=== PATIENT | female | born 1990 | race Caucasian/White ===

== ENCOUNTER 2019-05-05 16:32 | Outpatient (RCR) | payer MEDICAID, SELFPAY ==
[2019-05-05] MEDS: RHO(D) IMMUNE GLOBULIN 300 MCG SYRINGE IM (19:44)
== END 2019-08-03 23:59 | disposition home or self-care (01) ==
LOC: ANHLAB 16:32
PROVIDERS: PCP Family Medicine; Visit Provider Obstetrics & Gynecology
DX: Z29.13 Encounter for prophylactic Rho(D) immune globulin (principal); O36.0990 Maternal care for other rhesus isoimmunization, unspecified trimester, not applicable or unspecified; Z3A.00 Weeks of gestation of pregnancy not specified
CPT/HCPCS: 36415; 90384; 96372; J2790

== ENCOUNTER 2019-05-26 18:08 | Outpatient (CLI) | payer MEDICAID, SELFPAY ==
[2019-05-26 19:00] VITALS: BP 97/51
[2019-05-26 19:07] LABS: Add Urine Microscopic? YES; Appearance Urine Clear (Clear); Bacteria Urine Trace /hpf; Bilirubin Urine Negative (Negative); Blood Urine Negative (Negative); Color Urine Yellow (Yellow); Glucose Urine UA Negative (Negative); Ketones Urine Negative (Negative); Leukocyte Esterase Ur 3+ LEU/UL (NEGATIVE); Mucus Urine Rare /lpf; Nitrate Urine Negative (Negative); Protein Urine Negative (Negative); RBC Urine 0-2 /hpf (0-2); Specific Grav Ur 1.017 (1.001-1.035); Squamous Epithelial Cell Urine Many /hpf (Few); Urobilinogen Urine Negative mg/dL (<2.0)
[2019-05-26 19:15] VITALS: BP 104/58
[2019-05-26 19:30] VITALS: BP 102/63
[2019-05-26] MEDS: ACETAMINOPHEN 500 MG TABLET 1000 MG PO (19:48)
[2019-05-26 19:52] VITALS: BP 117/67; PULSE 91
== END 2019-05-26 19:50 | disposition home or self-care (01) ==
PROVIDERS: Obstetrics & Gynecology; PCP Family Medicine; Visit Provider Obstetrics & Gynecology
DX: O13.9 Gestational [pregnancy-induced] hypertension without significant proteinuria, unspecified trimester (principal)
CPT/HCPCS: 59025; 81001; 87077; 87086; 87088; A9270

== ENCOUNTER 2019-07-05 10:54 | Observation (INO) | payer OTHER, SELFPAY ==
[2019-07-05] VITALS (16 sets, daily range): BP systolic 90–112; BP diastolic 50–63; PULSE 111–128; TEMP 36.6–39.4; O2SAT 97; BMI 31.4
--- NOTE | ~2019-07-05 | US_ITS ---
EXAMINATION: US OB limited w BPP DATE: 07/05/2019 17:34 INDICATION: Pelvic pain and pressure, third trimester TECHNIQUE: Real-time pelvic ultrasound was performed. The interpreting radiologist was not present fo r the study. COMPARISON: None. FINDINGS: There is a single living fetus in breech presentation. The placenta is fundal. heart rate is 16 5 beats per minute (bpm). The cervical length is 4.2 cm. Biophysical profile performed by the technologist: breathing (30 sec sustained breathing in 30 minutes): 2 out of 2 movement (3 gross body movements in 30 minutes): 2 out of 2 tone (one episode of hbqikwa-oisvijjoz-jofizwm limb movement): 2 out of 2 Amniotic fluid pocket (2 cm): 2 out of 2 Total score: 8 out of 8 IMPRESSION: 1. Single living fetus in breech presentation. 2. Biophysical profile 8 out of 8. Reviewed, dictated and finalized at location A.
--- NOTE | 2019-07-05 10:54 | OBADM ---
This patient, Syed Roque, admitted to the OB room [facility] Post 116 for observation. Patient/family oriented to hospital policies and general routines including ID bracelet, bed and alarms, visiting hours, pain management, procedures, bathroom and other care routines, personal items, smoking policy, room service/diet, and visiting hours. Patient/Family are encouraged to report perceived risks to care and to ask questions if they do not understand what they are told or what they should do.
[2019-07-05 12:13] LABS: Add Urine Microscopic? YES; Appearance Urine Clear (Clear); Bacteria Urine Trace /hpf; Bilirubin Urine Negative (Negative); Blood Urine 1+ (Negative); Color Urine Yellow (Yellow); Glucose Urine UA Negative (Negative); Ketones Urine Trace mg/dL (Negative); Leukocyte Esterase Ur Trace LEU/UL (NEGATIVE); Mucus Urine Rare /lpf; Nitrate Urine Negative (Negative); Protein Urine Negative (Negative); RBC Urine 21-50 /hpf (0-2); Specific Grav Ur 1.015 (1.001-1.035); Squamous Epithelial Cell Urine Moderate /hpf (Few); Urobilinogen Urine Negative mg/dL (<2.0); WBC Urine 0-3 /hpf (0-3)
[2019-07-05] MEDS: DEXTROSE 5%/LACTATED RINGERS 1,000 ML 999 ML IV CONT (12:42)
[2019-07-05 12:59] LABS: Basophils Percent Auto 0.1 % (0.2-1.2); Eosinophils Percent Auto 0.1 % (0-4.4); Hematocrit 31.5 % (37.0-47.0); Hemoglobin 10.7 g/dL (12.0-15.0); Immature Granulocyte Absolute 0.11 K/mm3 (0.00-0.031); Immature Granulocyte Percent A 0.6 % (0-0.5); Immature Platelet Fraction Pct 13.2 % (0.9-11.2); Lymphocytes Absolute Auto 1.03 K/mm3 (0.9-3.2); Lymphocytes Percent Auto 6.1 % (18.3-44.2); Mean Corpuscular Hemoglobin 29.9 pg (26-34); Mean Platelet Volume 13.1 fl (7.4-10.4); Monocytes Absolute Auto 0.9 K/mm3 (0.1-0.6); Monocytes Percent Auto 5.3 % (2.6-8.5); Neutrophils Absolute Auto 14.9 K/mm3 (1.3-6.7); Neutrophils Percent Auto 87.8 % (45.5-73.1); Platelet Count Result 135 k/mm3 (150-375); Red Blood Count 3.58 M/mm3 (4.2-5.4); Red Cell Distribution Width 13.3 % (11.5-14.5)
--- NOTE | 2019-07-05 13:40 | PM.OBTRLD ---
OB - Triage/Final Diagnosis Visit Information Date of evaluation: 07/05/19 Reason for evaluation: other (viral syndrome) Evaluation Laboratory results: Laboratory Tests 07/05/19 07/05/19 12:01 12:41 WBC 17.0 H RBC 3.58 L Hgb 10.7 L Hct 31.5 L MCV 88.0 MCH 29.9 MCHC 34.0 RDW 13.3 Plt Count 135 L MPV 13.1 H Immature Gran % (Auto) 0.6 H Neut % (Auto) 87.8 H Lymph % (Auto) 6.1 L [place] % (Auto) 5.3 Eos % (Auto) 0.1 Baso % (Auto) 0.1 L Lymph # (Auto) 1.03 [place] # (Auto) 0.9 H Eos # (Auto) 0.0 Baso # (Auto) 0.0 Abs Immat Gran (auto) 0.11 H Absolute Neuts (auto) 14.9 H Absolute Nucleated RBC 0.0 Nucleated RBC % 0.0 % Immature Plt Fraction 13.2 H Urine Color Yellow Urine Appearance Clear Urine pH 7.0 Ur Specific [place] 1.015 Urine Protein Negative Urine Glucose (UA) Negative Urine Ketones Trace Ur Blood (Man) 1+ H Urine Nitrate Negative Urine Bilirubin Negative Urine Urobilinogen Negative Ur Leukocyte Esterase Trace H Urine RBC 21-50 H Urine WBC 0-3 Ur Squamous Epith Cells Moderate H Urine Bacteria Trace Urine Mucus Rare Vital signs: Vital Signs - 24 hr 07/05/19 11:53 07/05/19 12:43 Temperature 100.9 F H Pulse Rate 128 H Blood Pressure 112/60
[2019-07-05] MEDS: NIFEdipine 10 MG CAPSULE PO (13:52)
[2019-07-05] MEDS: SODIUM CHLORIDE 0.9% IV 250 ML 100 ML IV CONT (13:56)
[2019-07-05] MEDS: IBUPROFEN IV 800 MG/200 ML 800 MG/200 ML BAG 400 MG IVPB (16:19)
[2019-07-05 16:45] LABS: Influenza Control Positive
[2019-07-05] MEDS: DEXTROSE 5%/LACTATED RINGERS 1,000 ML 125 ML IV CONT (19:38)
--- NOTE | 2019-07-05 20:38 | PC.NURSE ---
Updated Dr. Tsang on patient assessment. Plan of care assessed with Dr. Tsang. Order of 1g tylenol q6 IVPB PRN overnight for pain management. NST in AM. Repeat CBC in AM.
[2019-07-06] VITALS (16 sets, daily range): BP systolic 93–107; BP diastolic 51–59; PULSE 110–132; TEMP 36.6–38.6; O2SAT 100
--- NOTE | 2019-07-06 00:35 | PC.NURSE ---
Notified Dr. Tsang of patient complaint of abdominal pain. Patient reports lower abdominal pain that is increasing and making it hard to sleep. Patient states pain in constant and increased with movement. Abdomen palpated soft, no contractions noted via toco monitoring. VSS. Patient appears relaxed. No guarding or grimacing noted with palpation. Patient encouraged to take warm shower to help with relaxation and encouraged to reposition to help relieve pain, patient refused interventions. Order given for 5mg Ambien PO now for sleep. Order given for 5mg Oxycodone PO if needed for pain.
[2019-07-06] MEDS: ZOLPIDEM TARTRATE 5 MG TABLET PO (00:44)
--- NOTE | 2019-07-06 00:58 | PC.NURSE ---
Patient repositioned with pillows in bed to increased comfort. Patient states following repositioning and use of pillows for support comfort was increased. Patient encouraged to sleep.
[2019-07-06] MEDS: DEXTROSE 5%/LACTATED RINGERS 1,000 ML 125 ML IV CONT (03:31)
--- NOTE | 2019-07-06 04:00 | PC.NURSE ---
Patient sleeping without complaint.
[2019-07-06 05:17] LABS: Basophils Percent Auto 0.2 % (0.2-1.2); Eosinophils Absolute Auto 0.1 K/mm3 (0-0.3); Eosinophils Percent Auto 0.3 % (0-4.4); Hematocrit 27.5 % (37.0-47.0); Hemoglobin 9.3 g/dL (12.0-15.0); Immature Granulocyte Absolute 0.18 K/mm3 (0.00-0.031); Lymphocytes Absolute Auto 1.68 K/mm3 (0.9-3.2); Lymphocytes Percent Auto 8.9 % (18.3-44.2); Mean Corpuscular HGB Conc 33.8 g/dl (32-36); Mean Corpuscular Hemoglobin 29.6 pg (26-34); Mean Corpuscular Volume 87.6 fl (80-100); Mean Platelet Volume 12.4 fl (7.4-10.4); Monocytes Absolute Auto 1.1 K/mm3 (0.1-0.6); Monocytes Percent Auto 5.9 % (2.6-8.5); Neutrophils Absolute Auto 15.8 K/mm3 (1.3-6.7); Neutrophils Percent Auto 83.7 % (45.5-73.1); Platelet Count Result 153 k/mm3 (150-375); Red Blood Count 3.14 M/mm3 (4.2-5.4); Red Cell Distribution Width 13.5 % (11.5-14.5); White Blood Count 18.9 K/mm3 (4.5-10.0)
[2019-07-06 05:42] LABS: Alanine Aminotransferase 10 U/L (4-35); Alkaline Phosphatase 65 U/L (38-126); Aspartate Amino Transferase 12 U/L (14-36); Bilirubin,Total 0.3 mg/dL (0.2-1.3); Calcium 8.3 mg/dL (8.4-10.2); Carbon Dioxide 21 mmol/L (22-30); Chloride 108 mmol/L (98-107); Estimated CRCL calculation 220 ml/min; Estimated Glomerular Filt Rate > 60; Glucose 97 mg/dL (65-105); Potassium 3.1 mmol/L (3.4-5.0); Sodium 134 mmol/L (137-145)
[2019-07-06 06:17] LABS: Blood Urea Nitrogen < 2 mg/dL (7-17)
--- NOTE | 2019-07-06 06:36 | PM.IMHP ---
H&P: HPI History of Present Illness Chief complaint: Pelvic Pain/Pressure Narrative: Syed Roque is a 29 year old female who presents at 34 weeks gestation complaining of aches and pains. This may go on for few days. She denies any fever she denies change in bowel movements in her appetite been good. She has no urinary complaints she does feels a lot of lower discomfort pressure her prior to this had been uncomplicated Review of Systems Review of Systems: All systems reviewed & are unremarkable except as noted in HPI and below PMFSH Family History Family History Sibling Patient's sister is in good health Mother Family history of allergic disorder Father Family history of alcoholism Social History Social History Smoking status: Never smoker Second hand tobacco smoke exposure: No Alcohol intake: current Meds Home Medications and Allergies Allergies Allergy/AdvReac Type Severity Reaction Status Date / Time No Known Allergies Allergy Unverified 02/16/18 12:07 Vital Signs Vital Signs - 24 hr 07/05/19 11:15 07/05/19 11:53 07/05/19 12:00 Temperature 99.9 F H 100.9 F H Pulse Rate 128 H Blood Pressure 112/60 Pulse Oximetry 07/05/19 12:43 07/05/19 12:48 07/05/19 13:10 Temperature 100.9 F H 103 F H 101 F H Pulse Rate Blood Pressure Pulse Oximetry 07/05/19 14:00 07/05/19 14:40 07/05/19 16:26 Temperature 99.1 F 98.9 F 100 F H Pulse Rate Blood Pressure Pulse Oximetry 07/05/19 17:12 07/05/19 17:37 07/05/19 17:45 Temperature 98.4 F Pulse Rate 117 H 111 H Blood Pressure 90/63 L 96/57 L Pulse Oximetry 07/05/19 18:00 07/05/19 20:58 07/05/19 20:59 Temperature 98 F 97.9 F 97.9 F Pulse Rate 111 H 117 H Blood Pressure 92/50 L 102/58 L Pulse Oximetry 97 07/05/19 21:50 07/06/19 00:35 07/06/19 00:37 Temperature 98 F 98 F Pulse Rate 110 H Blood Pressure 102/57 L Pulse Oximetry 100 07/06/19 00:38 07/06/19 00:39 07/06/19 00:41 Temperature Pulse Rate Blood Pressure Pulse Oximetry 100 100 100 07/06/19 03:27 07/06/19 05:00 Temperature 98.5 F 98.4 F Pulse Rate Blood Pressure Pulse Oximetry Exam Const: General: no acute distress Eyes: General: appearance normal, both eyes and all related structures Neck: Neck: supple and no JVD Thyroid: thyroid normal Resp: Effort & Inspection: normal respiratory effort Auscultation: clear to auscultation bilaterally Cardio: Rate: regular rate Rhythm: regular rhythm GI: Inspection: normal to inspection Percussion: Yes normal to percussion (gravid soft uterus.reactive nst. few ucs) : General: Yes bladder normal to palpation External Female Exam: normal external appearance Speculum Exam - Vagina: normal vaginal discharge and No vaginal bleeding Speculum Exam - Cervix: nontender Bimanual exam- vagina & uterus: bladder normal to palpation and No Cervical tenderness present OB/external & speculum: No vaginal bleeding Skin: General skin exam: no rashes or lesions noted Extrem: General: normal to inspection and no edema Psych: Mental Status: mental status grossly normal Affect: normal affect H&P: Results Labs Labs: Short CBC 07/05/19 07/06/19 Range/Units 12:41 05:01 WBC 17.0 H 18.9 H (4.5-10.0) K/mm3 Hgb 10.7 L 9.3 L (12.0-15.0) g/dL Hct 31.5 L 27.5 L (37.0-47.0) % Plt Count 135 L 153 (150-375) k/mm3 BMP 07/06/19 05:01 Sodium 134 L Potassium 3.1 L Chloride 108 H Carbon Dioxide 21 L BUN < 2 L Creatinine 0.30 L Glucose 97 Calcium 8.3 L Liver Function 07/06/19 Range/Units 05:01 Total Bilirubin 0.3 (0.2-1.3) mg/dL AST 12 L (14-36) U/L ALT 10 (4-35) U/L Alkaline Phosphatase 65 (38-126) U/L Albumin 3.0 L (3.5-5.1) g/dL Urine 07/05/19 Range/Units 12:
--- NOTE | 2019-07-06 06:58 | PM.OBPNVD ---
OB - PN: Subj Subjective Date/time seen: 07/06/19 06:58 Interval history: still feeling lower discomfort. ate well. nst reactive OB - PN: Obj Data Labs CBC & Chem 7: 07/06/19 05:01 07/06/19 05:01 Labs: Laboratory Results - last 24 hr 07/05/19 07/05/19 07/05/19 12:01 12:41 16:21 WBC 17.0 H RBC 3.58 L Hgb 10.7 L Hct 31.5 L MCV 88.0 MCH 29.9 MCHC 34.0 RDW 13.3 Plt Count 135 L MPV 13.1 H Immature Gran % (Auto) 0.6 H Neut % (Auto) 87.8 H Lymph % (Auto) 6.1 L [place] % (Auto) 5.3 Eos % (Auto) 0.1 Baso % (Auto) 0.1 L Lymph # (Auto) 1.03 [place] # (Auto) 0.9 H Eos # (Auto) 0.0 Baso # (Auto) 0.0 Abs Immat Gran (auto) 0.11 H Absolute Neuts (auto) 14.9 H Absolute Nucleated RBC 0.0 Nucleated RBC % 0.0 % Immature Plt Fraction 13.2 H Sodium Potassium Chloride Carbon Dioxide BUN Creatinine Estim Creat Clear Calc Estimated GFR Glucose Calcium Total Bilirubin AST ALT Alkaline Phosphatase Total Protein Albumin Urine Color Yellow Urine Appearance Clear Urine pH 7.0 Ur Specific [place] 1.015 Urine Protein Negative Urine Glucose (UA) Negative Urine Ketones Trace Ur Blood (Man) 1+ H Urine Nitrate Negative Urine Bilirubin Negative Urine Urobilinogen Negative Ur Leukocyte Esterase Trace H Urine RBC 21-50 H Urine WBC 0-3 Ur Squamous Epith Cells Moderate H Urine Bacteria Trace Urine Mucus Rare Influenza Types A,B Ag Negative 07/06/19 07/06/19 05:01 05:01 WBC 18.9 H RBC 3.14 L Hgb 9.3 L Hct 27.5 L MCV 87.6 MCH 29.6 MCHC 33.8 RDW 13.5 Plt Count 153 MPV 12.4 H Immature Gran % (Auto) 1.0 H Neut % (Auto) 83.7 H Lymph % (Auto) 8.9 L [place] % (Auto) 5.9 Eos % (Auto) 0.3 Baso % (Auto) 0.2 Lymph # (Auto) 1.68 [place] # (Auto) 1.1 H Eos # (Auto) 0.1 Baso # (Auto) 0.0 Abs Immat Gran (auto) 0.18 H Absolute Neuts (auto) 15.8 H Absolute Nucleated RBC 0.0 Nucleated RBC % 0.0 % Immature Plt Fraction Sodium 134 L Potassium 3.1 L Chloride 108 H Carbon Dioxide 21 L BUN < 2 L Creatinine 0.30 L Estim Creat Clear Calc 220 Estimated GFR > 60 Glucose 97 Calcium 8.3 L Total Bilirubin 0.3 AST 12 L ALT 10 Alkaline Phosphatase 65 Total Protein 6.0 L Albumin 3.0 L Urine Color Urine Appearance Urine pH Ur Specific [place] Urine Protein Urine Glucose (UA) Urine Ketones Ur Blood (Man) Urine Nitrate Urine Bilirubin Urine Urobilinogen Ur Leukocyte Esterase Urine RBC Urine WBC Ur Squamous Epith Cells Urine Bacteria Urine Mucus Influenza Types A,B Ag Imaging Radiologist's impression: Impressions Obstetrics US/Biophysical Profile 07/05/19 17:35 IMPRESSION: 1. Single living fetus in breech presentation. 2. Biophysical profile 8 out of 8. OB - PN A/P Plan Comments: 35 weeks leukocytosis ? secondary viral syndrome plan:iv hydration/support Time Spent With Patient Time: Total time spent is greater than 50% in coordination of care (as documented) at patient's floor/unit and/or counseling patient: Review of Systems Review of Systems: All systems reviewed & are unremarkable except as noted in HPI and below Exam Const: General: no acute distress Eyes: General: appearance normal, both eyes and all related structures Neck: Neck: supple and no JVD Thyroid: thyroid normal Resp: Effort & Inspection: normal respiratory effort Auscultation: clear to auscultation bilaterally Cardio: Rate: regular rate Rhythm: regular rhythm GI: Inspection: non-distended GI Palp: Yes Soft to palpation, No Tenderness to palpation present (GI) and No Guarding due to palpation present (GI) Auscultation: normal bowel sounds : General: Yes bladder normal to palpation External Female Exam: n
[2019-07-06] MEDS: NIFEdipine 10 MG CAPSULE PO (08:27)
[2019-07-06] MEDS: POTASSIUM CHLORIDE INJ 10 MEQ in DEXTROSE 5%/0.45% SOD CHL 1,000 ML 100 MEQ IV CONT (08:36)
--- NOTE | 2019-07-06 09:52 | PC.NURSE ---
Pt states her bone pain is better about a 6 and still feels contractions. Cannot get comfortable in the bed and moving around. Will call Dr Nolan Olson and see about a second procardia and/or vag exam.
--- NOTE | 2019-07-06 12:35 | PM.OBPNVD ---
OB - PN: Subj Subjective Date/time seen: 07/06/19 12:35 Interval history: still not feeling well. few ucs seen get next dose of rocephin/continue iv hydration with K replacement recheck cbc am watch for ptl OB - PN: Obj Data Labs CBC & Chem 7: 07/06/19 05:01 07/06/19 05:01 Labs: Laboratory Results - last 24 hr 07/05/19 07/05/19 07/06/19 12:41 16:21 05:01 WBC 17.0 H 18.9 H RBC 3.58 L 3.14 L Hgb 10.7 L 9.3 L Hct 31.5 L 27.5 L MCV 88.0 87.6 MCH 29.9 29.6 MCHC 34.0 33.8 RDW 13.3 13.5 Plt Count 135 L 153 MPV 13.1 H 12.4 H Immature Gran % (Auto) 0.6 H 1.0 H Neut % (Auto) 87.8 H 83.7 H Lymph % (Auto) 6.1 L 8.9 L [place] % (Auto) 5.3 5.9 Eos % (Auto) 0.1 0.3 Baso % (Auto) 0.1 L 0.2 Lymph # (Auto) 1.03 1.68 [place] # (Auto) 0.9 H 1.1 H Eos # (Auto) 0.0 0.1 Baso # (Auto) 0.0 0.0 Abs Immat Gran (auto) 0.11 H 0.18 H Absolute Neuts (auto) 14.9 H 15.8 H Absolute Nucleated RBC 0.0 0.0 Nucleated RBC % 0.0 0.0 % Immature Plt Fraction 13.2 H Sodium Potassium Chloride Carbon Dioxide BUN Creatinine Estim Creat Clear Calc Estimated GFR Glucose Calcium Total Bilirubin AST ALT Alkaline Phosphatase Total Protein Albumin Influenza Types A,B Ag Negative 07/06/19 05:01 WBC RBC Hgb Hct MCV MCH MCHC RDW Plt Count MPV Immature Gran % (Auto) Neut % (Auto) Lymph % (Auto) [place] % (Auto) Eos % (Auto) Baso % (Auto) Lymph # (Auto) [place] # (Auto) Eos # (Auto) Baso # (Auto) Abs Immat Gran (auto) Absolute Neuts (auto) Absolute Nucleated RBC Nucleated RBC % % Immature Plt Fraction Sodium 134 L Potassium 3.1 L Chloride 108 H Carbon Dioxide 21 L BUN < 2 L Creatinine 0.30 L Estim Creat Clear Calc 220 Estimated GFR > 60 Glucose 97 Calcium 8.3 L Total Bilirubin 0.3 AST 12 L ALT 10 Alkaline Phosphatase 65 Total Protein 6.0 L Albumin 3.0 L Influenza Types A,B Ag Imaging Radiologist's impression: Impressions Obstetrics US/Biophysical Profile 07/05/19 17:35 IMPRESSION: 1. Single living fetus in breech presentation. 2. Biophysical profile 8 out of 8. OB - PN A/P Time Spent With Patient Time: Total time spent is greater than 50% in coordination of care (as documented) at patient's floor/unit and/or counseling patient:
--- NOTE | 2019-07-06 12:52 | PC.NURSE ---
Addendum entered by Julieth Moreno, YARELIS 07/06/19 12:53: fht 160's, temp 100.3, contractions appear like irritability, palpated mild. [place] 10 given for pain. Original Note: Plan of care discussed with Dr Nolan Olson. FJ+
[2019-07-06] MEDS: IBUPROFEN IV 800 MG/200 ML 800 MG/200 ML BAG 400 MG IVPB (15:07)
[2019-07-06] MEDS: DEXTROSE 5%/LACTATED RINGERS 1,000 ML 100 ML IV CONT (20:34)
[2019-07-07 02:41] VITALS: BP 115/58; PULSE 130; TEMP 37.9
[2019-07-07] MEDS: NIFEdipine 10 MG CAPSULE 20 MG PO ×2 (03:06→07:57)
[2019-07-07 04:00] VITALS: TEMP 36.6
[2019-07-07 04:09] LABS: Basophils Percent Auto 0.3 % (0.2-1.2); Eosinophils Absolute Auto 0.1 K/mm3 (0-0.3); Eosinophils Percent Auto 1.2 % (0-4.4); Hematocrit 27.5 % (37.0-47.0); Hemoglobin 9.1 g/dL (12.0-15.0); Immature Granulocyte Absolute 0.06 K/mm3 (0.00-0.031); Immature Granulocyte Percent A 0.5 % (0-0.5); Lymphocytes Absolute Auto 1.75 K/mm3 (0.9-3.2); Mean Corpuscular HGB Conc 33.1 g/dl (32-36); Mean Corpuscular Hemoglobin 29.5 pg (26-34); Mean Corpuscular Volume 89.3 fl (80-100); Mean Platelet Volume 12.1 fl (7.4-10.4); Monocytes Absolute Auto 0.8 K/mm3 (0.1-0.6); Monocytes Percent Auto 7.7 % (2.6-8.5); Neutrophils Absolute Auto 8.1 K/mm3 (1.3-6.7); Neutrophils Percent Auto 74.3 % (45.5-73.1); Platelet Count Result 161 k/mm3 (150-375); Red Blood Count 3.08 M/mm3 (4.2-5.4); Red Cell Distribution Width 13.7 % (11.5-14.5); White Blood Count 10.9 K/mm3 (4.5-10.0)
[2019-07-07 04:28] LABS: Alanine Aminotransferase 10 U/L (4-35); Alkaline Phosphatase 74 U/L (38-126); Aspartate Amino Transferase 14 U/L (14-36); Bilirubin,Total 0.3 mg/dL (0.2-1.3); Calcium 8.2 mg/dL (8.4-10.2); Carbon Dioxide 20 mmol/L (22-30); Chloride 108 mmol/L (98-107); Estimated CRCL calculation 220 ml/min; Estimated Glomerular Filt Rate > 60; Glucose 180 mg/dL (65-105); Potassium 3.1 mmol/L (3.4-5.0); Sodium 134 mmol/L (137-145)
[2019-07-07 05:40] LABS: Blood Urea Nitrogen < 2 mg/dL (7-17)
[2019-07-07 07:11] VITALS: BP 100/61; PULSE 106
--- NOTE | 2019-07-07 07:14 | P.DS_ITS ---
DS: Diagnosis Admitting Diagnosis Admitting Diagnosis: 35 weeks/ptl/viral syndrome DS: Summary Time Spent with Patient Time attestation: Total time spent providing and/or coordinating discharge services: DS: Data Data Completed and Pending Labs on day of discharge: Labs from last 24 hours 07/07/19 07/07/19 04:01 04:01 WBC 10.9 H RBC 3.08 L Hgb 9.1 L Hct 27.5 L MCV 89.3 MCH 29.5 MCHC 33.1 RDW 13.7 Plt Count 161 MPV 12.1 H Immature Gran % (Auto) 0.5 Neut % (Auto) 74.3 H Lymph % (Auto) 16.0 L [place] % (Auto) 7.7 Eos % (Auto) 1.2 Baso % (Auto) 0.3 Lymph # (Auto) 1.75 [place] # (Auto) 0.8 H Eos # (Auto) 0.1 Baso # (Auto) 0.0 Abs Immat Gran (auto) 0.06 H Absolute Neuts (auto) 8.1 H Absolute Nucleated RBC 0.0 Nucleated RBC % 0.0 Sodium 134 L Potassium 3.1 L Ch[place] 108 H Carbon Dioxide 20 L BUN < 2 L Creatinine 0.30 L Estim Creat Clear Calc 220 Estimated GFR > 60 Glucose 180 H Calcium 8.2 L Total Bilirubin 0.3 AST 14 ALT 10 Alkaline Phosphatase 74 Total Protein 6.0 L Albumin 3.0 L Discharge Plan Discharge Attending physician on discharge: Jonathan Ponce Discharging Clinician: Jonathan Ponce Patient Disposition: Home, Self-Care Activity: may shower, no straining and pelvic rest Diet: heart healthy Patient Instructions: Antibiotic Form Stand Alone Forms: General Discharge Information Follow-up/Referrals: Jonathan Ponce MD [Physician] - Discharge Medications: New hydrocodone-acetaminophen [[place]] 10-325 mg tablet 1 tablet PO Q6H PRN (Reason: pain) Qty: 14 RF: 0 hydrocodone-acetaminophen [[place]] 10-325 mg Tablet 1 tab PO Q6H PRN (Reason: Pain Rated 7-10) Qty: 20 RF: 0 nifedipine 10 mg Capsule 20 mg PO Q4-6H PRN (Reason: CONTRACTIONS) Qty: 60 RF: 0 Date of admission: 07/05/19 10:54 Primary Care Provider: Rachel Lobo Admitting Provider: Jonathan Ponce Attending physician on admission: Jonathan Ponce
--- NOTE | 2019-07-07 07:14 | PM.OBPNVD ---
OB - PN: Subj Subjective Date/time seen: 07/07/19 07:14 Interval history: feeling better OB - PN: Obj Data Labs CBC & Chem 7: 07/07/19 04:01 07/07/19 04:01 Labs: Laboratory Results - last 24 hr 07/07/19 07/07/19 04:01 04:01 WBC 10.9 H RBC 3.08 L Hgb 9.1 L Hct 27.5 L MCV 89.3 MCH 29.5 MCHC 33.1 RDW 13.7 Plt Count 161 MPV 12.1 H Immature Gran % (Auto) 0.5 Neut % (Auto) 74.3 H Lymph % (Auto) 16.0 L [place] % (Auto) 7.7 Eos % (Auto) 1.2 Baso % (Auto) 0.3 Lymph # (Auto) 1.75 [place] # (Auto) 0.8 H Eos # (Auto) 0.1 Baso # (Auto) 0.0 Abs Immat Gran (auto) 0.06 H Absolute Neuts (auto) 8.1 H Absolute Nucleated RBC 0.0 Nucleated RBC % 0.0 Sodium 134 L Potassium 3.1 L Chlor[place] 108 H Carbon Dioxide 20 L BUN < 2 L Creatinine 0.30 L Estim Creat Clear Calc 220 Estimated GFR > 60 Glucose 180 H Calcium 8.2 L Total Bilirubin 0.3 AST 14 ALT 10 Alkaline Phosphatase 74 Total Protein 6.0 L Albumin 3.0 L OB - PN A/P Plan Comments: temp/wbc better home on procardia Time Spent With Patient Time: Total time spent is greater than 50% in coordination of care (as documented) at patient's floor/unit and/or counseling patient: Time with patient: less than 15 minutes Review of Systems Review of Systems: All systems reviewed & are unremarkable except as noted in HPI and below Exam Const: General: no acute distress Eyes: General: appearance normal, both eyes and all related structures Neck: Neck: supple and no JVD Thyroid: thyroid normal Resp: Effort & Inspection: normal respiratory effort Auscultation: clear to auscultation bilaterally Cardio: Rate: regular rate Rhythm: regular rhythm GI: Inspection: non-distended GI Palp: Yes Soft to palpation, No Tenderness to palpation present (GI) and No Guarding due to palpation present (GI) Auscultation: normal bowel sounds : General: Yes bladder normal to palpation External Female Exam: normal external appearance Speculum Exam - Vagina: normal vaginal discharge and No vaginal bleeding Speculum Exam - Cervix: nontender Bimanual exam- vagina & uterus: bladder normal to palpation and No Cervical tenderness present OB/external & speculum: No vaginal bleeding Skin: General skin exam: no rashes or lesions noted Extrem: General: normal to inspection and no edema Psych: Mental Status: mental status grossly normal Affect: normal affect
--- NOTE | 2019-07-07 08:03 | PC.NURSE ---
PT HAS BEEN DOZING OFF AND ON, BUT STILL SAYS PAIN AT 7=8. gIVEN pROCARDIA AND NORCO TO HELP. ENCOURAGED TO GET BREAKFAST SO SHE CAN TAKE HER POTASSIUM
[2019-07-07 08:05] VITALS: TEMP 37.2
[2019-07-07] MEDS: POTASSIUM CHLORIDE 20 MEQ TABLET 40 MEQ PO (10:09)
[2019-07-07 12:30] VITALS: TEMP 36.9
== END 2019-07-07 13:30 | disposition home or self-care (01) ==
PROVIDERS: Admitting Provider Obstetrics & Gynecology; PCP Family Medicine; Visit Provider Obstetrics & Gynecology
DX: O26.893 Other specified pregnancy related conditions, third trimester (principal); R10.2 Pelvic and perineal pain; B34.9 Viral infection, unspecified; O98.513 Other viral diseases complicating pregnancy, third trimester; O60.03 Preterm labor without delivery, third trimester; Z3A.35 35 weeks gestation of pregnancy
CPT/HCPCS: 36415; 76815; 76819; 80053; 81001; 85025; 85055; 87086; 87088; 87804; 96360; 96361; 96365; 96366; 96367; 96375; A9270; G0378; G0379; J0131; J0696; J1741; J3480; J7050; J7121

== ENCOUNTER 2019-07-08 14:37 | Observation (INO) | payer OTHER, SELFPAY ==
--- NOTE | ~2019-07-08 | US_ITS ---
EXAMINATION: US OB limited DATE: 07/08/2019 16:33 INDICATION: contractions, third trimester TECHNIQUE: Real-time ultrasound of the pelvis was performed. The interpreting radiologist was not pre sent for the study. COMPARISON: None. FINDINGS: There is a single living fetus in transverse lie. The placenta is posterior/fundal. The cer vical length is 3.7 cm. cardiac activity and movement are noted. heart rate is 152 beats per minute (bpm). The amniotic fluid index is 14.9 cm which is normal. IMPRESSION: 1. Single living fetus in transverse lie. 2. Normal amniotic fluid index. 3. Cervical length equals 3.7 cm Reviewed, dictated and finalized at location A.
[2019-07-08 15:00] VITALS: BMI 31.2
[2019-07-08 15:59] VITALS: PULSE 105; O2SAT 100
[2019-07-08 16:00] VITALS: BP 111/65; PULSE 92; TEMP 36.9
[2019-07-08] MEDS: TERBUTALINE SULFATE 1 MG/ML VIAL 0.25 MG SUB-Q ×2 (16:00→17:24)
--- NOTE | 2019-07-08 17:45 | LDADM ---
This patient, Syed Roque, was admitted to [facility] on 07/08/19 at 14:37. Plans for labor, pain management and were discussed with patient. Patient/family oriented to hospital policies and general routines including ID bracelet, bed and alarms, visiting hours, pain management, procedures, bathroom and other care routines, personal items, smoking policy, room service/diet and guest tray routines, infant security routines, and visiting hours. Patient/Family are encouraged to report perceived risks to care and to ask questions if they do not understand what they are told or what they should do. See OBIX for further documentation.
--- NOTE | 2019-07-08 18:26 | PC.NURSE ---
PT RATES HER PAIN AT 7-8 LOWER ABDOMEN AND RADIATES TO HER BACK WHICH IS CONSTANT BEING TREATED WITH NORCO 10MG Q6. PRESENTED TODAY (DISCHARGED YESTERDAY 07/06) FOR CONTRACTIONS B/C THE PHARMACY WOULD NOT FILL HER PROCARDIA WRITTEN B/C OF THE INSURANCE. OFFICE TRIED ALL DAY TO SETTLE AND COULD NOT, THEREFOR ADMISSION TODAY. SVE SLIGHTLY CHANGED FROM YESTERDAY BUT NOT IN LABOR.
[2019-07-08 18:40] VITALS: TEMP 36.7
[2019-07-08] MEDS: BETAMETHASONE SOD PHOS/ACETATE 30 MG/5 ML VIAL 12 MG IM (18:43)
[2019-07-08] MEDS: NIFEdipine 10 MG CAPSULE 20 MG PO ×2 (18:47→22:42)
[2019-07-08 19:04] LABS: Basophils Percent Auto 0.3 % (0.2-1.2); Eosinophils Absolute Auto 0.1 K/mm3 (0-0.3); Eosinophils Percent Auto 1.2 % (0-4.4); Hematocrit 29.6 % (37.0-47.0); Hemoglobin 9.9 g/dL (12.0-15.0); Immature Granulocyte Absolute 0.06 K/mm3 (0.00-0.031); Immature Granulocyte Percent A 0.8 % (0-0.5); Lymphocytes Absolute Auto 1.89 K/mm3 (0.9-3.2); Lymphocytes Percent Auto 25.3 % (18.3-44.2); Mean Corpuscular HGB Conc 33.4 g/dl (32-36); Mean Corpuscular Hemoglobin 29.3 pg (26-34); Mean Corpuscular Volume 87.6 fl (80-100); Mean Platelet Volume 11.9 fl (7.4-10.4); Monocytes Absolute Auto 0.7 K/mm3 (0.1-0.6); Monocytes Percent Auto 9.4 % (2.6-8.5); Neutrophils Absolute Auto 4.7 K/mm3 (1.3-6.7); Platelet Count Result 182 k/mm3 (150-375); Red Blood Count 3.38 M/mm3 (4.2-5.4); Red Cell Distribution Width 13.4 % (11.5-14.5); White Blood Count 7.5 K/mm3 (4.5-10.0)
[2019-07-09] VITALS (8 sets, daily range): BP systolic 104–122; BP diastolic 61–65; PULSE 91–117; RESP 20; TEMP 36.2–37.3
[2019-07-09] MEDS: NIFEdipine 10 MG CAPSULE 20 MG PO ×5 (02:38→22:56)
--- NOTE | 2019-07-09 09:10 | PM.IMHP ---
H&P: HPI History of Present Illness Chief complaint: contractions Narrative: Syed Roque is a 29 year old female 004 whose last menstrual period was 11/04/2018, EDC is 08/11/2019, presents at 35 weeks gestation with regular uterine contractions. She has known GBS bacteriuria. She was discharged from the hospital with labor on Procardia a few days ago. She was unable to fill the prescription is now been karmen since. She denies loss of fluid but has just some pain. Her last stay included an elevated temperature for which she received antibiotics. Viral syndrome was suspected at that time Review of Systems Review of Systems: All systems reviewed & are unremarkable except as noted in HPI and below PMFSH Family History Family History Sibling Patient's sister is in good health Mother Family history of allergic disorder Father Family history of alcoholism Social History Social History Smoking status: Never smoker Second hand tobacco smoke exposure: No Alcohol intake: current Meds Home Medications and Allergies Home Medications Medication Instructions Recorded Confirmed Type hydrocodone-acetaminophen [[place]] 1 tab PO Q6H PRN #20 tablet 07/07/19 Rx hydrocodone-acetaminophen [[place]] 1 tablet PO Q6H PRN #14 tablet 07/07/19 Rx nifedipine 20 mg PO Q4-6H PRN #60 cap 07/07/19 Rx Allergies Allergy/AdvReac Type Severity Reaction Status Date / Time No Known Allergies Allergy Unverified 02/16/18 12:07 Vital Signs Vital Signs - 24 hr 07/08/19 15:59 07/08/19 16:00 07/08/19 18:40 Temperature 98.4 F 98.1 F Pulse Rate 92 Blood Pressure 111/65 Pulse Oximetry 100 07/09/19 00:21 07/09/19 00:24 07/09/19 02:40 Temperature 97.8 F Pulse Rate 117 H 107 H Blood Pressure 104/61 110/65 Pulse Oximetry Exam Const: General: no acute distress Eyes: General: appearance normal, both eyes and all related structures Neck: Neck: supple and no JVD Thyroid: thyroid normal Resp: Effort & Inspection: normal respiratory effort Auscultation: clear to auscultation bilaterally Cardio: Rate: regular rate Rhythm: regular rhythm GI: Inspection: normal to inspection GI Palp: Yes Other GI palpation findings present ( gravid soft uterus.) : General: Yes bladder normal to palpation External Female Exam: normal external appearance Speculum Exam - Vagina: normal vaginal discharge and No vaginal bleeding Speculum Exam - Cervix: nontender Bimanual exam- vagina & uterus: bladder normal to palpation and No Cervical tenderness present OB/external & speculum: No vaginal bleeding Skin: General skin exam: no rashes or lesions noted Extrem: General: normal to inspection and no edema Psych: Mental Status: mental status grossly normal Affect: normal affect H&P: Results Labs Labs: Short CBC 07/08/19 Range/Units 18:49 WBC 7.5 (4.5-10.0) K/mm3 Hgb 9.9 L (12.0-15.0) g/dL Hct 29.6 L (37.0-47.0) % Plt Count 182 (150-375) k/mm3 Assessment and Plan Additional Plan Impression: 35 week with labor Plan: Tocolysis. Steroid intervention.
[2019-07-09] MEDS: ACETAMINOPHEN 325 MG TABLET 650 MG PO ×3 (12:47→22:56)
[2019-07-09] MEDS: BETAMETHASONE SOD PHOS/ACETATE 30 MG/5 ML VIAL 12 MG IM (18:49)
[2019-07-10 04:28] VITALS: RESP 18; TEMP 36.2
[2019-07-10 04:29] VITALS: BP 105/65; PULSE 81
[2019-07-10] MEDS: NIFEdipine 10 MG CAPSULE 20 MG PO ×4 (04:51→22:27)
[2019-07-10] MEDS: ACETAMINOPHEN 325 MG TABLET 650 MG PO ×4 (04:51→22:27)
--- NOTE | 2019-07-10 07:23 | PM.OBPNVD ---
OB - PN: Subj Subjective Date/time seen: 07/10/19 07:23 Interval history: 35 weeks today. Pain is improved. Uterine contractions have slowed on nifedipine OB - PN: Obj Data Labs CBC & Chem 7: 07/08/19 18:49 OB - PN A/P Plan Comments: impression: 35 weeks labor And plan: Continue p.o. nifedipine and support Time Spent With Patient Time: Total time spent is greater than 50% in coordination of care (as documented) at patient's floor/unit and/or counseling patient: Review of Systems Review of Systems: All systems reviewed & are unremarkable except as noted in HPI and below Exam Const: General: no acute distress Eyes: General: appearance normal, both eyes and all related structures Neck: Neck: supple and no JVD Thyroid: thyroid normal Resp: Effort & Inspection: normal respiratory effort Auscultation: clear to auscultation bilaterally Cardio: Rate: regular rate Rhythm: regular rhythm GI: Inspection: non-distended GI Palp: Yes Soft to palpation, No Tenderness to palpation present (GI) and No Guarding due to palpation present (GI) Auscultation: normal bowel sounds : General: Yes bladder normal to palpation External Female Exam: normal external appearance Speculum Exam - Vagina: normal vaginal discharge and No vaginal bleeding Speculum Exam - Cervix: nontender Bimanual exam- vagina & uterus: bladder normal to palpation and No Cervical tenderness present OB/external & speculum: No vaginal bleeding Skin: General skin exam: no rashes or lesions noted Extrem: General: normal to inspection and no edema Psych: Mental Status: mental status grossly normal Affect: normal affect
[2019-07-10 10:46] VITALS: BP 109/68; PULSE 77
[2019-07-10 16:51] VITALS: BP 109/68; PULSE 88
[2019-07-10 20:00] VITALS: BP 110/57; PULSE 103; RESP 20; TEMP 36.6
[2019-07-11] MEDS: ACETAMINOPHEN 325 MG TABLET 650 MG PO (04:35)
[2019-07-11] MEDS: NIFEdipine 10 MG CAPSULE 20 MG PO ×2 (04:35→12:03)
[2019-07-11 04:36] VITALS: BP 88/36; PULSE 74; RESP 18; TEMP 36.4
[2019-07-11 04:38] VITALS: BP 81/50; PULSE 71
[2019-07-11 04:53] VITALS: BP 105/68; PULSE 78
--- NOTE | 2019-07-11 06:37 | P.DS_ITS ---
DS: Diagnosis Admitting Diagnosis Admitting Diagnosis: 35 weeks/ptl DS: Summary Time Spent with Patient Time attestation: Total time spent providing and/or coordinating discharge services: Exam Const: General: no acute distress Eyes: General: appearance normal, both eyes and all related structures Neck: Neck: supple and no JVD Thyroid: thyroid normal Resp: Effort & Inspection: normal respiratory effort Auscultation: clear to auscultation bilaterally Cardio: Rate: regular rate Rhythm: regular rhythm GI: Inspection: non-distended GI Palp: Yes Soft to palpation, No Tenderness to palpation present (GI) and No Guarding due to palpation present (GI) Auscultation: normal bowel sounds : General: Yes bladder normal to palpation External Female Exam: normal external appearance Speculum Exam - Vagina: normal vaginal discharge and No vaginal bleeding Speculum Exam - Cervix: nontender Bimanual exam- vagina & uterus: bladder normal to palpation and No Cervical tenderness present OB /external & speculum: No vaginal bleeding Skin: General skin exam: no rashes or lesions noted Extrem: General: normal to inspection and no edema Psych: Mental Status: mental status grossly normal Affect: normal affect Discharge Plan Discharge Attending physician on discharge: Jonathan Ponce Discharging Clinician: Jonathan Ponce Patient Disposition: Home, Self-Care Activity: may shower, no straining and pelvic rest Diet: heart healthy Patient Instructions: Antibiotic Form Stand Alone Forms: General Discharge Information Follow-up/Referrals: Jonathan Ponce MD [Physician] - Discharge Medications: Discontinued hydrocodone-acetaminophen [[place]] 10-325 mg tablet 1 tablet PO Q6H PRN (Reason: pain) Qty: 14 RF: 0 hydrocodone-acetaminophen [[place]] 10-325 mg Tablet 1 tab PO Q6H PRN (Reason: Pain Rated 7-10) Qty: 20 RF: 0 nifedipine 10 mg Capsule 20 mg PO Q4-6H PRN (Reason: CONTRACTIONS) Qty: 60 RF: 0 Date of admission: 07/08/19 14:37 Primary Care Provider: Rachel Lobo Admitting Provider: Jonathan Ponce Attending physician on admission: Jonathan Ponce
--- NOTE | 2019-07-11 06:38 | PM.OBPNVD ---
OB - PN: Subj Subjective Date/time seen: 07/11/19 06:38 Interval history: 35 weeks today. Pain is improved. Uterine contractions have slowed on nifedipine OB - PN: Obj Data Labs CBC & Chem 7: 07/08/19 18:49 OB - PN A/P Time Spent With Patient Time: Total time spent is greater than 50% in coordination of care (as documented) at patient's floor/unit and/or counseling patient:
--- NOTE | 2019-07-11 06:38 | PM.OBPNVD ---
OB - PN: Subj Subjective Date/time seen: 07/11/19 06:38 Interval history: feeling ok OB - PN: Obj Data Labs CBC & Chem 7: 07/08/19 18:49 OB - PN A/P Plan Comments: 35 weeks/ptl plan:home on procardia ptl precautions Time Spent With Patient Time: Total time spent is greater than 50% in coordination of care (as documented) at patient's floor/unit and/or counseling patient: Time with patient: less than 15 minutes Review of Systems Review of Systems: All systems reviewed & are unremarkable except as noted in HPI and below Exam Const: General: no acute distress Eyes: General: appearance normal, both eyes and all related structures Neck: Neck: supple and no JVD Thyroid: thyroid normal Resp: Effort & Inspection: normal respiratory effort Auscultation: clear to auscultation bilaterally Cardio: Rate: regular rate Rhythm: regular rhythm GI: Inspection: non-distended GI Palp: Yes Soft to palpation, No Tenderness to palpation present (GI) and No Guarding due to palpation present (GI) Auscultation: normal bowel sounds : General: Yes bladder normal to palpation External Female Exam: normal external appearance Speculum Exam - Vagina: normal vaginal discharge and No vaginal bleeding Speculum Exam - Cervix: nontender Bimanual exam- vagina & uterus: bladder normal to palpation and No Cervical tenderness present OB/external & speculum: No vaginal bleeding Skin: General skin exam: no rashes or lesions noted Extrem: General: normal to inspection and no edema Psych: Mental Status: mental status grossly normal Affect: normal affect
[2019-07-11 06:49] VITALS: BP 89/40; PULSE 79
[2019-07-11 07:00] VITALS: TEMP 36.4
[2019-07-11 11:38] VITALS: BP 89/40; PULSE 77
== END 2019-07-11 12:40 | disposition home or self-care (01) ==
PROVIDERS: Admitting Provider Obstetrics & Gynecology; PCP Family Medicine; Visit Provider Obstetrics & Gynecology
DX: O60.03 Preterm labor without delivery, third trimester (principal); O99.820 Streptococcus B carrier state complicating pregnancy; Z3A.35 35 weeks gestation of pregnancy
CPT/HCPCS: 36415; 59025; 76815; 85025; 96372; A9270; G0378; G0379; J0702; J3105

== ENCOUNTER 2019-08-04 05:59 | Inpatient (IN) | payer OTHER, SELFPAY ==
[2019-08-04] VITALS (88 sets, daily range): BP systolic 82–126; BP diastolic 45–99; PULSE 64–222; RESP 16; TEMP 36.2–36.6; O2SAT 99–100
[2019-08-04 06:44] LABS: Basophils Percent Auto 0.3 % (0.2-1.2); Eosinophils Absolute Auto 0.1 K/mm3 (0-0.3); Hematocrit 33.3 % (37.0-47.0); Hemoglobin 10.9 g/dL (12.0-15.0); Immature Granulocyte Absolute 0.07 K/mm3 (0.00-0.031); Immature Granulocyte Percent A 0.6 % (0-0.5); Lymphocytes Absolute Auto 3.35 K/mm3 (0.9-3.2); Mean Corpuscular HGB Conc 32.7 g/dl (32-36); Mean Corpuscular Hemoglobin 28.5 pg (26-34); Mean Corpuscular Volume 87.2 fl (80-100); Mean Platelet Volume 12.5 fl (7.4-10.4); Monocytes Absolute Auto 0.7 K/mm3 (0.1-0.6); Monocytes Percent Auto 5.5 % (2.6-8.5); Neutrophils Absolute Auto 7.7 K/mm3 (1.3-6.7); Neutrophils Percent Auto 64.6 % (45.5-73.1); Platelet Count Result 191 k/mm3 (150-375); Red Blood Count 3.82 M/mm3 (4.2-5.4); Red Cell Distribution Width 13.9 % (11.5-14.5)
[2019-08-04] MEDS: LACTATED RINGERS 1,000 ML 125 ML IV CONT ×2 (06:55→18:21)
[2019-08-04] MEDS: OXYTOCIN 30 UNITS/NS 500 ML 30 UNITS/500 ML BAG IV CONT (06:56)
[2019-08-04] MEDS: AMPICILLIN 2 GM/NS 100 ML 2 GM/100 ML BAG IVPB (06:56)
--- NOTE | 2019-08-04 07:00 | LDADM ---
This patient, Syed Roque, was admitted to Labor/Delivery/Recovery [facility] on 08/04/19 at 05:59. Plans for labor, pain management and were discussed with patient. Patient/family oriented to hospital policies and general routines including ID bracelet, bed and alarms, visiting hours, pain management, procedures, bathroom and other care routines, personal items, smoking policy, room service/diet and guest tray routines, security routines, and visiting hours. Patient/Family are encouraged to report perceived risks to care and to ask questions if they do not understand what they are told or what they should do. See OBIX for further documentation.
--- NOTE | 2019-08-04 07:07 | PM.IMHP ---
H&P: HPI History of Present Illness Chief complaint: induction Narrative: Syed Roque is a 29 year old female 5 para [id number] whose last menstrual period was 11/04/2018, EDC is 08/11/2019, confirmed by 7 week ultrasound, presents for induction of labor. Her cervix is favorable. She has good dates. She is positive for group B strep in her 1st dose of ampicillin has been administered. Review of Systems Review of Systems: All systems reviewed & are unremarkable except as noted in HPI and below PMFSH Family History Family History Sibling Patient's sister is in good health Mother Hypertension Father Family history of alcoholism Social History Social History Smoking status: Never smoker Second hand tobacco smoke exposure: No Alcohol intake: current Substance use: never Gender identity (if verbalized by the patient): Female Spiritual care concerns: No Meds Home Medications and Allergies Allergies Allergy/AdvReac Type Severity Reaction Status Date / Time No Known Allergies Allergy Unverified 02/16/18 12:07 Exam Const: General: no acute distress Eyes: General: appearance normal, both eyes and all related structures Neck: Neck: supple and no JVD Thyroid: thyroid normal Resp: Effort & Inspection: normal respiratory effort Auscultation: clear to auscultation bilaterally Cardio: Rate: regular rate Rhythm: regular rhythm GI: Inspection: normal to inspection (Gravid soft uterus) : External Female Exam: normal external appearance Speculum Exam - Vagina: normal appearance of the vagina Speculum Exam - Cervix: Cervical os closed (Cervix 3/75/-2. AROM clear. FHTs reassuring) Skin: General skin exam: no rashes or lesions noted Extrem: General: normal to inspection and no edema Psych: Mental Status: mental status grossly normal Affect: normal affect H&P: Results Labs Labs: Short CBC 08/04/19 Range/Units 06:39 WBC 12.0 H (4.5-10.0) K/mm3 Hgb 10.9 L (12.0-15.0) g/dL Hct 33.3 L (37.0-47.0) % Plt Count 191 (150-375) k/mm3 Assessment and Plan Additional Plan Impression: Term with group B strep positive with favorable cervix Plan: Medical lateral of labor, spontaneous vaginal delivery is expected, group B strep prophylaxis is undertaken.
[2019-08-04] MEDS: AMPICILLIN 1 GM/NS 50 ML 1 GM/50 ML BAG IVPB ×3 (12:00→18:56)
--- NOTE | 2019-08-04 14:26 | P.PNOB_ITS ---
OB - PN: Subj Subjective Date/time seen: 08/04/19 14:26 Interval history: cx 3 by rn exam fhts ok iupc in OB - PN: Obj Data Labs CBC & Chem 7: 08/04/19 06:39 Labs: Laboratory Results - last 24 hr 08/04/19 08/04/19 06:39 06:39 WBC 12.0 H RBC 3.82 L Hgb 10.9 L Hct 33.3 L MCV 87.2 MCH 28.5 MCHC 32.7 RDW 13.9 Plt Count 191 MPV 12.5 H Immature Gran % (Auto) 0.6 H Neut % (Auto) 64.6 Lymph % (Auto) 28.0 [place] % (Auto) 5.5 Eos % (Auto) 1.0 Baso % (Auto) 0.3 Lymph # (Auto) 3.35 H [place] # (Auto) 0.7 H Eos # (Auto) 0.1 Baso # (Auto) 0.0 Abs Immat Gran (auto) 0.07 H Absolute Neuts (auto) 7.7 H Absolute Nucleated RBC 0.0 Nucleated RBC % 0.0 Blood Type O Negative Antibody Screen Negative OB - PN A/P Time Spent With Patient Time: Total time spent is greater than 50% in coordination of care (as documented) at patient's floor/unit and/or counseling patient:
--- NOTE | 2019-08-04 18:49 | WPDANESEPP ---
Anes - Eval Pre Procedure Procedure: labor epidural Date/Time: 08/04/19 18:49 Surgeon: Farshad Preop Diagnosis: Pain during labor Pre Op Diagnosis: induction Patient Data Age: 29 Gender: F Height: Weight: Last Vital Signs Temp 36.6 C 08/04/19 18:23 Pulse 76 08/04/19 18:48 BP 118/64 08/04/19 18:48 Pulse Ox 100 08/04/19 18:44 Allergies Allergy/AdvReac Type Severity Reaction Status Date / Time No Known Allergies Allergy Unverified 02/16/18 12:07 Laboratory Tests 08/04/19 08/04/19 08/04/19 06:39 06:39 06:39 WBC 12.0 K/mm3 H K/mm3 (4.5-10.0) RBC 3.82 M/mm3 L M/mm3 (4.2-5.4) Hgb 10.9 g/dL L g/dL (12.0-15.0) Hct 33.3 % L % (37.0-47.0) MCV 87.2 fl fl (80-100) MCH 28.5 pg pg (26-34) MCHC 32.7 g/dl g/dl (32-36) RDW 13.9 % % (11.5-14.5) Plt Count 191 k/mm3 k/mm3 (150-375) MPV 12.5 fl H fl (7.4-10.4) Immature Gran % (Auto) 0.6 % H % (0-0.5) Neut % (Auto) 64.6 % % (45.5-73.1) Lymph % (Auto) 28.0 % % (18.3-44.2) [place] % (Auto) 5.5 % % (2.6-8.5) Eos % (Auto) 1.0 % % (0-4.4) Baso % (Auto) 0.3 % % (0.2-1.2) Lymph # (Auto) 3.35 K/mm3 H K/mm3 (0.9-3.2) [place] # (Auto) 0.7 K/mm3 H K/mm3 (0.1-0.6) Eos # (Auto) 0.1 K/mm3 K/mm3 (0-0.3) Baso # (Auto) 0.0 K/mm3 K/mm3 (0.0-0.1) Abs Immat Gran (auto) 0.07 K/mm3 H K/mm3 (0.00-0.031) Absolute Neuts (auto) 7.7 K/mm3 H K/mm3 (1.3-6.7) Absolute Nucleated RBC 0.0 K/mm3 K/mm3 (0.0-0.012) Nucleated RBC % 0.0 % % (0.0-0.2) RPR Pending Blood Type O Negative Antibody Screen Negative Patient hx anesthesia problems: none Family hx anesthesia problems: none PMFSH Family History Family History Sibling Patient's sister is in good health Mother Hypertension Father Family history of alcoholism Social History Social History Smoking status: Never smoker Second hand tobacco smoke exposure: No Alcohol intake: current Substance use: never Gender identity (if verbalized by the patient): Female Spiritual care concerns: No Exam Day of Procedure 08/04/19 18:49
--- NOTE | 2019-08-04 20:08 | PM.OBPRVD ---
OB - Delivery Note Procedure Delivery date: 08/04/19 Intrapartal events: None Induction method: AROM Delivery augmentation: pitocin Delivery monitor: external FHT Route of delivery: Episiotomy description: None Laceration description: None Specimen: No Estimated blood loss (mL): 57 Anesthesia type: Epidural Disposition: floor Complications: amp for gbs [place] Baby Date of : 08/04/19 Time of : 19:59 Weeks of gestation at delivery: 39 gender: Male Weight (pounds): 7 Weight (ounces): 7 presentation: vertex position: Right Occiput Anterior Placenta delivery description: Spontaneous cord vessel description: 3 Vessels score one minute: 9 score five minutes: 9
[2019-08-04] MEDS: OXYTOCIN 30 UNITS/NS 500 ML 30 UNITS/500 ML BAG 125 UNITS IV CONT (20:33)
[2019-08-05] MEDS: IBUPROFEN 600 MG TABLET PO ×3 (05:01→22:36)
[2019-08-05 05:38] LABS: Hematocrit 28.8 % (37.0-47.0); Hemoglobin 9.5 g/dL (12.0-15.0)
--- NOTE | 2019-08-05 07:01 | PM.OBPNVD ---
OB - PN: Subj Subjective Date/time seen: 08/05/19 07:01 Patient comments: no complaints and pain well controlled baby status: doing well and nursing well OB - PN: Obj Data Labs CBC & Chem 7: 08/05/19 04:57 Labs: Laboratory Results - last 24 hr 08/04/19 08/05/19 06:39 04:57 Hgb 9.5 L Hct 28.8 L Blood Type O Negative Antibody Screen Negative OB - PN A/P Plan day: 1 Plan: routine care Time Spent With Patient Time: Total time spent is greater than 50% in coordination of care (as documented) at patient's floor/unit and/or counseling patient: Time with patient: less than 15 minutes Review of Systems Review of Systems: All systems reviewed & are unremarkable except as noted in HPI and below Exam Const: General: no acute distress Eyes: General: appearance normal, both eyes and all related structures Neck: Neck: supple and no JVD Thyroid: thyroid normal Resp: Effort & Inspection: normal respiratory effort Auscultation: clear to auscultation bilaterally Cardio: Rate: regular rate Rhythm: regular rhythm GI: Inspection: non-distended GI Palp: Yes Soft to palpation, No Tenderness to palpation present (GI) and No Guarding due to palpation present (GI) Auscultation: normal bowel sounds : General: Yes bladder normal to palpation External Female Exam: normal external appearance Speculum Exam - Vagina: normal vaginal discharge and No vaginal bleeding Speculum Exam - Cervix: nontender Bimanual exam- vagina & uterus: bladder normal to palpation and No Cervical tenderness present OB/external & speculum: No vaginal bleeding Skin: General skin exam: no rashes or lesions noted Extrem: General: normal to inspection and no edema Psych: Mental Status: mental status grossly normal Affect: normal affect
[2019-08-05] MEDS: MULTIVIT/MIN/PREN/FOL AC/IRON TABLET 1 TAB PO (08:11)
[2019-08-05] MEDS: POLYSACCHARIDE IRON COMPLEX 150 MG CAPSULE PO ×2 (08:11→16:17)
[2019-08-05] MEDS: DOCUSATE SODIUM 100 MG CAPSULE PO ×2 (08:12→16:18)
[2019-08-05] MEDS: ACETAMINOPHEN 325 MG TABLET 650 MG PO ×2 (08:19→14:31)
[2019-08-05 08:36] LABS: Rapid Plasma Reagin Non-Reactive (NonReactive)
[2019-08-05 08:45] VITALS: BP 88/54; PULSE 71; RESP 18; TEMP 36.7
--- NOTE | 2019-08-05 11:30 | PC.NURSE ---
Consult with pt., mother reports this to be 5th child, she has not pumped or breastfed. Mother wishes to pump and bottle feed. Discussed transition to milk supply and may be a few days before she is able to pump more than a few mls per session. Instructions given on breast pump care and usage, pumping schedule, nipple care, and collection and storage of breast milk. Encouraged [id number], breast massage and manual expression to stimulate supply. Assessed patient for correct flange size, placement and draw. Patient verbalizes and demonstrates understanding of instructions. Reviewed transition to breast milk, signs of adequate intake, and engorgement/relief. Instructed to call ICP if intake/output less than required. Reviewed regular medications mother is taking. Information provided per Tanja. Reviewed community resources on the [employer] website and in the Mom/Baby guide. Information on outpatient services provided. Mother has no further questions at this time.
--- NOTE | 2019-08-05 11:42 | WPDANLDPN2 ---
Anes-Prog Note L&D Date/Time: 08/05/19 11:42 Comfortable throughout: labor and delivery Neuraxial method: epidural Epidural/Spinal procedure site: clean & non-tender Neuro status: Neuro function grossly intact. Cardiovascular status: normal Respiratory status: normal Airway patency: baseline Mental status: baseline Post-Op hydration status: normal Vital Signs: Last Vital Signs Temp 36.7 C 08/05/19 08:45 Pulse 71 08/05/19 08:45 Resp 18 08/05/19 08:45 BP 88/54 L 08/05/19 08:45 Pulse Ox 100 08/04/19 19:59 I/O: Intake & Output 08/04/19 08/05/19 08/05/19 23:59 07:59 15:59 Intake Total 1600 Output Total 223 Balance 1377 Post-procedural complaints: none Patient feedback: Patient satisfied with anesthetic care.
[2019-08-05 16:27] VITALS: BMI 31.4
[2019-08-05 19:00] VITALS: BP 117/66; PULSE 78; RESP 16; TEMP 36.7
--- NOTE | 2019-08-05 22:00 | PC.NURSE ---
Patient viewed the discharge video Mother & Baby Care, The First Two Weeks . Patient was given the opportunity and encouraged to ask questions. Patient verbalized understanding of information shared and has been given the mother/baby guide for home reference.
--- NOTE | 2019-08-06 07:23 | PM.OBDSVD ---
OB - DS: Summary OB Procedures : None OB Procedures Intrapartum: Spontaneous Vag Delivery OB Procedures: : None Status at Discharge Functional status at discharge: independent ambulation Overall status at discharge: patient is back to baseline Time Spent with Patient Time attestation: Total time spent providing and/or coordinating discharge services: Time spent: Less than 30 minutes Exam Const: General: comfortable and no acute distress Resp: Effort & Inspection: normal respiratory effort Auscultation: clear to auscultation bilaterally Cardio: Rate: regular rate GI: GI Palp: Yes Soft to palpation Auscultation: normal bowel sounds Other: Fundus firm below umbilicus Psych: Appearance: grossly normal Mental Status: mental status grossly normal Affect: normal affect DS: Data Data Completed and Pending Labs on day of discharge: Labs from last 24 hours 08/04/19 06:39 RPR Non-reactive Discharge Plan Discharge Attending physician on discharge: Jonathan Ponce Discharging Clinician: Jonathan Ponce Patient Disposition: Home Health Service Activity: may shower, no straining, may drive after 2 weeks and pelvic rest Diet: heart healthy Wound Care Instructions: follow printed instructions Patient Instructions: Antibiotic Form Stand Alone Forms: General Discharge Information Follow-up/Referrals: Jonathan Ponce MD [Physician] - Discharge Medications: New hydrocodone-acetaminophen 5-325 mg Tablet 1 tablet PO Q3H PRN (Reason: Moderate Pain (4-6)) Qty: 20 RF: 0 Dermoplast (with menthol) 20-0.5 % Aerosol 1 spray topical PRN PRN (Reason: Perineal Discomfort) Qty: 1 RF: 0 docusate sodium 100 mg Capsule 100 mg PO BID PRN (Reason: Constipation) 7 Days RF: 0 ibuprofen 600 mg Tablet 600 mg PO Q6H PRN (Reason: Cramping) Qty: 30 RF: 0 [id number]-S-[id number] Cream 1 applic topical PRN PRN (Reason: Sore Nipples) Qty: 1 RF: 0 Date of admission: 08/04/19 05:59 Primary Care Provider: Rachel Lobo Admitting Provider: Jonathan Ponce Attending physician on admission: Jonathan Ponce
[2019-08-06] MEDS: POLYSACCHARIDE IRON COMPLEX 150 MG CAPSULE PO (08:12)
[2019-08-06] MEDS: MULTIVIT/MIN/PREN/FOL AC/IRON TABLET 1 TAB PO (08:12)
[2019-08-06] MEDS: DOCUSATE SODIUM 100 MG CAPSULE PO (08:12)
[2019-08-06] MEDS: IBUPROFEN 600 MG TABLET PO ×2 (08:13→13:35)
[2019-08-06 09:39] VITALS: BP 119/67; PULSE 68; RESP 18; TEMP 36.6; O2SAT 100
[2019-08-08 10:26] VITALS: BP 116/71; PULSE 73; RESP 18; TEMP 36.9
== END 2019-08-06 16:12 | disposition home or self-care (01) | DRG 560 ==
LOC: ANHOB2 08-06 09:59 → ANHLDR 08-09 07:34 → ANHOB2 08-09 07:34
PROVIDERS: Admitting Provider Obstetrics & Gynecology; PCP Family Medicine; Visit Provider Student in an Organized Health Care Education/Training Program
DX: O99.824 Streptococcus B carrier state complicating childbirth (principal); O76 Abnormality in fetal heart rate and rhythm complicating labor and delivery; Z3A.39 39 weeks gestation of pregnancy; Z37.0 Single live birth; Z23 Encounter for immunization
CPT/HCPCS: 36415; 85014; 85018; 85025; 86592; 86850; 86900; 86901; A9270; J0290; J2590; J2795; J3010; J7120

== ENCOUNTER 2021-02-04 17:23 | Outpatient (CLI) | payer OTHER, SELFPAY ==
--- NOTE | ~2021-02-04 | XR_ITS ---
EXAMINATION: XR skull min 4V DATE: 02/04/2021 17:44 INDICATION: Head injury 3 months ago. Indentation in right cheek. TECHNIQUE: 4 views of the skull were obtained. COMPARISON: Head CT 07/31/2015 FINDINGS: Bone alignment is normal. No fracture. IMPRESSION: 1. No fracture. Reviewed, dictated and finalized at location A. IMPRESSION: 1. No fracture.
== END 2021-02-04 17:24 | disposition home or self-care (01) ==
LOC: ANHIMG 17:27
PROVIDERS: PCP Family Medicine; Visit Provider Physician Assistant
DX: S09.93XA Unspecified injury of face, initial encounter (principal); X58.XXXA Exposure to other specified factors, initial encounter
CPT/HCPCS: 70260

== ENCOUNTER → 2021-05-13 09:51 | Outpatient (CLI) | payer OTHER, SELFPAY ==
[2021-05-13 12:43] LABS: Influenza A QL RT-PCR Negative (Negative); Influenza B QL RT-PCR Negative (Negative); SARS-CoV-2 RNA PCR Negative
== END ==
PROVIDERS: PCP Family Medicine; Visit Provider Physician Assistant
DX: Z20.822 Contact with and (suspected) exposure to COVID-19 (principal)
CPT/HCPCS: 87502; C9803; U0003; U0005